=== PATIENT | female | born 1975 | race Caucasian/White ===

== ENCOUNTER 2017-01-06 18:29 | Inpatient (IN) | payer MEDICAID ==
[~2017-01-06] VITALS: Ht 167.6 cm; Wt 65.3 kg
[~2017-01-06 18:29] MED LIST: CLON2TAB PO; LAMO100T5 PO; TRAZ100T15 PO; elavil PO
[2017-01-06] MEDS ORDERED: ONDANSETRON 2MG/ML, 2ML ONE ×2 (19:15→20:27)
[2017-01-06] MEDS ORDERED: ONDANSETRON 2MG/ML, 2ML IVPush ONE ×2 (19:30→20:30)
[2017-01-06] MEDS ORDERED: SODIUM CHLORIDE 0.9% 1,000ML IVBOLUS ONE ×2 (19:30→20:00)
[2017-01-06] MEDS ORDERED: SODIUM CHLORIDE FLUSH 10ML SYR IVF ONE ×2 (19:30→20:00)
[2017-01-06 19:37] LABS: ASPARTATE AMINO TRANSFERASE 14 U/L (15-37); BLOOD UREA NITROGEN 12 mg/dL (7-18)
[2017-01-06] MEDS ORDERED: AMPH20TA2 PO (19:45)
[2017-01-06] MEDS ORDERED: MORPHINE SULFATE 4 MG/ML, 1ML ONE ×2 (19:52→20:34)
[2017-01-06] MEDS: MORPHINE SULFATE 4 MG/ML, 1ML IVPush PRN ×2 (20:00→20:35)
[2017-01-06] MEDS ORDERED: OMNIPAQUE 350 MG/ML, 100ML BOTTLE ONE (20:17)
[2017-01-06] MEDS ORDERED: PROCHLORPERAZINE 5 MG/ML, 2ML IVPush ONE (21:30)
[2017-01-06] MEDS ORDERED: PROCHLORPERAZINE 5 MG/ML, 2ML ONE (21:44)
[2017-01-06] MEDS ORDERED: ONDANSETRON 2MG/ML, 2ML IVPush PRN (22:30)
[2017-01-06 23:16] VITALS: BP 114/76
[2017-01-06] MEDS: morphine SULFATE 10 MG/ML, 1ML IVPush PRN (23:39)
[2017-01-07] MEDS: HEPARIN 5,000 UNITS/ML, 1ML SQ SCH ×3 (00:07→16:47)
[2017-01-07] MEDS: NICOTINE 21 MG/24 HR PATCH.TD24 TD SCH (00:07)
[2017-01-07] MEDS: SODIUM CHLORIDE 0.9% 1,000 ML IV SCH ×2 (00:07→09:33)
[2017-01-07] MEDS ORDERED: PNEUMOCOCCAL 23 VACCINE IM-VACC ONE (01:00)
[2017-01-07 03:00] VITALS: BP 104/66
[2017-01-07] MEDS: morphine SULFATE 10 MG/ML, 1ML IVPush PRN ×6 (03:10→20:13)
[2017-01-07 06:36] LABS: BLOOD UREA NITROGEN 10 mg/dL (7-18)
[2017-01-07 06:41] LABS: ASPARTATE AMINO TRANSFERASE 7 U/L (15-37)
[2017-01-07 07:31] VITALS: BP 113/73
[2017-01-07] MEDS: LORazepam 2 MG/ML, 1ML IVPush PRN ×2 (08:23→18:27)
[2017-01-07] MEDS ORDERED: POTASSIUM CHLORIDE 40 MEQ in SODIUM CHLORIDE 0.9% 500 ML IV ONE (10:00)
[2017-01-07 11:57] VITALS: BP 111/77
[2017-01-07 14:54] VITALS: BP 101/63
[2017-01-07 15:56] LABS: IS PT STATUS REG ER OR PRE ER? NO
[2017-01-07] MEDS: D5%-0.9% NACL 1,000 ML IV SCH ×2 (16:47→18:00)
[2017-01-07 19:40] VITALS: BP 128/89
[2017-01-07] MEDS ORDERED: TRAZODONE 100MG TABLET PO SCH (22:30)
[2017-01-08] MEDS: NICOTINE 21 MG/24 HR PATCH.TD24 TD SCH ×2 (00:01→21:31)
[2017-01-08] MEDS: HEPARIN 5,000 UNITS/ML, 1ML SQ SCH ×3 (00:01→16:38)
[2017-01-08 01:58] VITALS: BP 107/72
[2017-01-08] MEDS: D5%-0.9% NACL 1,000 ML IV SCH ×3 (02:04→21:32)
[2017-01-08] MEDS: morphine SULFATE 10 MG/ML, 1ML IVPush PRN ×5 (04:50→14:36)
[2017-01-08 06:11] LABS: BLOOD UREA NITROGEN 9 mg/dL (7-18)
[2017-01-08 07:38] VITALS: BP 113/77
[2017-01-08] MEDS: LAMOTRIGINE 100 MG TABLET PO SCH ×3 (08:00→21:30)
[2017-01-08 13:40] VITALS: BP 114/76
[2017-01-08] MEDS ORDERED: OXYcodone IR 5MG TABLET PO PRN (16:30)
[2017-01-08] MEDS ORDERED: OXYcodone/APAP 5/325MG TABLET PO PRN (17:30)
[2017-01-08] MEDS: OXYcodone/APAP 10/325MG TABLET PO PRN (19:42)
[2017-01-08 19:50] VITALS: BP 111/76
[2017-01-08] MEDS ORDERED: CLONAZEPAM 3 MG PO SCH (21:00)
[2017-01-08] MEDS ORDERED: TRAZODONE 100MG TABLET PO SCH (21:00)
[2017-01-09] MEDS: OXYcodone/APAP 10/325MG TABLET PO PRN ×3 (01:44→13:52)
[2017-01-09] MEDS: HEPARIN 5,000 UNITS/ML, 1ML SQ SCH ×3 (01:44→15:46)
[2017-01-09 01:45] VITALS: BP 106/72
[2017-01-09] MEDS: D5%-0.9% NACL 1,000 ML IV SCH ×2 (06:19→13:52)
[2017-01-09 07:15] VITALS: BP 118/79
[2017-01-09] MEDS: LAMOTRIGINE 100 MG TABLET PO SCH (07:51)
[2017-01-09] MEDS ORDERED: PNEUMOCOCCAL 23 VACCINE IM-VACC ONE ×2 (09:30→10:00)
[2017-01-09] MEDS: morphine SULFATE 10 MG/ML, 1ML IVPush PRN ×2 (11:40→15:46)
[2017-01-09 13:34] VITALS: BP 105/72
[2017-01-09] MEDS ORDERED: ONDA4TAB7 PO (15:50)
[2017-01-09] MEDS ORDERED: OXYC1TAB9 PO (15:50)
== END 2017-01-09 16:31 | disposition home or self-care (01) | DRG 392 ==
LOC: ED 21:29 → EDIP 21:40 → 3NE 22:30
DX: K52.9 Noninfective gastroenteritis and colitis, unspecified (principal); K56.60 Unspecified intestinal obstruction; K29.70 Gastritis, unspecified, without bleeding; F31.9 Bipolar disorder, unspecified; M79.7 Fibromyalgia; F12.10 Cannabis abuse, uncomplicated; Z83.3 Family history of diabetes mellitus; Z88.6 Allergy status to analgesic agent; Z88.8 Allergy status to other drugs, medicaments and biological substances; Z66 Do not resuscitate; N85.8 Other specified noninflammatory disorders of uterus; F98.8 Other specified behavioral and emotional disorders with onset usually occurring in childhood and adolescence; Z90.710 Acquired absence of both cervix and uterus; Z88.5 Allergy status to narcotic agent; E87.6 Hypokalemia; R00.0 Tachycardia, unspecified; F17.210 Nicotine dependence, cigarettes, uncomplicated; D75.89 Other specified diseases of blood and blood-forming organs
CPT/HCPCS: 36415; 74000; 74177; 80048; 80053; 81003; 83690; 83735; 84484; 84703; 85025; 90732; 93005; 96361; 96374; 96375; J1644; J2405; J3480; J7042; Q9967; J0780; J2060; J2270; J7030; J7040

== ENCOUNTER 2017-09-22 10:27 | Emergency (ER) | payer MEDICAID ==
[~2017-09-22] VITALS: Ht 167.6 cm; Wt 75.3 kg
[~2017-09-22 10:27] MED LIST changes: +AMPH20TA2 PO; +ONDA4TAB7 PO; +OXYC1TAB9 PO
[2017-09-22 10:37] VITALS: BP 114/76
[2017-09-22] MEDS ORDERED: HYDROcodone/APAP 7.5-325MG/15ML UDC PO ONE (11:00)
[2017-09-22] MEDS ORDERED: HYDROcodone/APAP 7.5-325MG/15ML UDC ONE (11:17)
[2017-09-22 11:25] LABS: RAPID INFLUENZA A Negative (Negative); RAPID INFLUENZA B Negative (Negative)
== END 2017-09-22 11:45 | disposition home or self-care (01) ==
LOC: ED 11:19
DX: B96.89 Other specified bacterial agents as the cause of diseases classified elsewhere (principal); J20.8 Acute bronchitis due to other specified organisms; F17.210 Nicotine dependence, cigarettes, uncomplicated; J00 Acute nasopharyngitis [common cold]; M79.7 Fibromyalgia
CPT/HCPCS: 71046; 87081; 87400; 87880; 99285

== ENCOUNTER 2017-09-29 09:51 | Emergency (ER) | payer MEDICAID ==
[~2017-09-29] VITALS: Ht 167.6 cm; Wt 73.5 kg
[2017-09-29] MEDS ORDERED: ALBUTEROL SULFATE 2.5 MG/3 ML NPPB ONE (10:30)
[2017-09-29] MEDS ORDERED: ALBUTEROL SULFATE 2.5 MG/3 ML ONE (10:42)
[2017-09-29] MEDS ORDERED: SODIUM CHLORIDE 0.9% 1,000 ML IV ONE (11:10)
[2017-09-29 11:24] VITALS: BP 121/93
[2017-09-29 11:25] LABS: BASOPHILS # (AUTO) 0.04 x10^3/uL (0-0.1); BASOPHILS % (AUTO) 0 % (0-1); EOSINOPHILS % (AUTO) 1 % (1-7); LYMPHOCYTES # (AUTO) 3.24 x10^3/uL (1-3.4); LYMPHOCYTES % (AUTO) 27 % (22-44); MD NO; MEAN CORPUSCULAR HEMOGLOBIN 30.5 pg (27.0-34.8); MEAN CORPUSCULAR VOLUME 89.7 fL (80-100); MEAN PLATELET VOLUME 6.3 fL (7.4-10.4); MONOCYTES # (AUTO) 0.49 x10^3/uL (0.2-0.8); MONOCYTES % (AUTO) 4 % (2-9); NEUTROPHILS # (AUTO) 8.32 x10^3/uL (1.8-6.8); NEUTROPHILS % (AUTO) 68 % (42-75); PLATELET COUNT 460 x10^3/uL (130-400); RED BLOOD COUNT 4.92 x10^6/uL (3.82-5.3); RED CELL DISTRIBUTION WIDTH 13.2 % (9.6-15.2)
[2017-09-29] MEDS ORDERED: SODIUM CHLORIDE FLUSH 10ML SYR IVF ONE (11:30)
[2017-09-29] MEDS ORDERED: SODIUM CHLORIDE 0.9% 1,000ML IVBOLUS ONE (11:30)
[2017-09-29 11:35] LABS: ALBUMIN 3.4 g/dL (3.4-5.0); ANION GAP 8 mmol/L (5-15); CALCIUM 8.4 mg/dL (8.5-10.1); CHLORIDE 106 mmol/L (98-107); CREATININE 0.73 mg/dL (0.55-1.02)
[2017-09-29] MEDS ORDERED: IBUPROFEN 200 MG TABLET ONE (12:27)
[2017-09-29] MEDS ORDERED: IBUPROFEN 200 MG TABLET PO ONE (12:30)
[2017-09-29] MEDS ORDERED: DEXAMETHASONE 4 MG TABLET ONE (12:36)
[2017-09-29] MEDS ORDERED: DEXAMETHASONE 4 MG TABLET PO ONE (13:00)
== END 2017-09-29 13:10 | disposition home or self-care (01) ==
LOC: ED 11:29
DX: J01.00 Acute maxillary sinusitis, unspecified (principal); J01.10 Acute frontal sinusitis, unspecified; J98.01 Acute bronchospasm
CPT/HCPCS: 36415; 71046; 80048; 82040; 85025; 94640; 96360; 99285; J7030; J7613

== ENCOUNTER → 2018-01-30 | Outpatient (CLI) | payer MEDICAID ==
[~2018-01-30] MED LIST changes: +CLON-365 PO; +DEXT10TA7 PO; +LAMO200T3 PO; +MIRT15TA4 PO; +OXYC-432 PO; -OXYC1TAB9 PO; +VARE1TAB21 PO
== END ==
LOC: STAR 13:16
PROVIDERS: ATTEND Surgery
DX: Z02.9 Encounter for administrative examinations, unspecified (principal)

== ENCOUNTER 2018-02-03 10:32 | Day surgery (SDC) | payer MEDICAID ==
[~2018-02-03] VITALS: Ht 167.6 cm; Wt 75.6 kg
[~2018-02-03 10:32] MED LIST changes: -OXYC-432 PO; +OXYC1TAB9 PO
[2018-02-03] MEDS ORDERED: LACTATED RINGERS 1,000 ML IV SCH ×2 (11:27→19:00)
[2018-02-03] MEDS ORDERED: GABAPENTIN 300 MG CAPSULE PO ONE (12:00)
[2018-02-03] MEDS ORDERED: FAMOTIDINE 20 MG TABLET PO ONE (12:00)
[2018-02-03] MEDS ORDERED: SCOPOLAMINE PATCH, 1.5MG PATCH.TD72 TD ONE (12:00)
[2018-02-03] MEDS ORDERED: OXYcodone IR 5MG TABLET PO ONE (12:00)
[2018-02-03] MEDS ORDERED: ONDANSETRON ODT 8 MG PO ONE (12:00)
[2018-02-03] MEDS ORDERED: ACETAMINOPHEN 500 MG TABLET PO ONE (12:00)
[2018-02-03] MEDS ORDERED: BUPIVACAINE/PF 0.25% ONE (13:59)
[2018-02-03] MEDS ORDERED: ISOSULFAN BLUE 10 MG/ML, 5ML IV ONE (13:59)
[2018-02-03] MEDS ORDERED: EPINEPHRINE 1 MG/ML, 1ML ONE (13:59)
[2018-02-03] MEDS ORDERED: MIDAZOLAM 1 MG/ML, 2ML ONE (14:09)
[2018-02-03] MEDS ORDERED: FENTANYL PF 100 MCG/2ML ONE ×3 (14:09→17:07)
[2018-02-03] MEDS ORDERED: DEXAMETHASONE 4 MG/ML, 1ML ONE (14:43)
[2018-02-03] MEDS ORDERED: PROPOFOL 10 MG/ML, 20ML ONE (14:43)
[2018-02-03] MEDS ORDERED: CEFAZOLIN 1,000 MG ONE (14:43)
[2018-02-03] MEDS ORDERED: ONDANSETRON 2MG/ML, 2ML ONE (14:43)
[2018-02-03] MEDS ORDERED: OXYcodone 5 MG/5 ML ORAL.SOL UDC ONE ×2 (17:08→18:56)
[2018-02-03] MEDS ORDERED: ACETAMINOPHEN 650 MG/20.3 ML UDC ONE (17:08)
[2018-02-03] MEDS: FENTANYL PF 100 MCG/2ML IV PRN ×2 (17:15→17:20)
[2018-02-03] MEDS ORDERED: MEPERIDINE/PF 25MG/0.5ML ONE (17:24)
[2018-02-03] MEDS ORDERED: PROMETHAZINE 25 MG/ML, 1ML IV PRN (17:30)
[2018-02-03] MEDS ORDERED: ALBUTEROL SULFATE 2.5 MG/3 ML NPPB PRN (17:30)
[2018-02-03] MEDS ORDERED: HYDROcodone/APAP 7.5-325MG/15ML UDC PO PRN (17:30)
[2018-02-03] MEDS ORDERED: DIAZEPAM 5 MG/ML, 2ML IVPush PRN (17:30)
[2018-02-03] MEDS ORDERED: EPHEDRINE 50 MG/ML, 1ML IVPush PRN (17:30)
[2018-02-03] MEDS ORDERED: LABETALOL 5MG/ML, 20ML IV PRN (17:30)
[2018-02-03] MEDS ORDERED: OXYcodone 5 MG/5 ML ORAL.SOL UDC PO PRN ×3 (17:30→19:00)
[2018-02-03] MEDS ORDERED: hydrALAzine 20 MG/ML, 1ML IV PRN (17:30)
[2018-02-03] MEDS ORDERED: MEPERIDINE/PF 25MG/0.5ML IVPush PRN (17:30)
[2018-02-03] MEDS ORDERED: ONDANSETRON ODT 8 MG PO PRN (17:30)
[2018-02-03] MEDS ORDERED: HYDROmorphone 1 MG/ML, 1ML IV PRN (17:30)
[2018-02-03] MEDS ORDERED: MIDAZOLAM 1 MG/ML, 2ML IV PRN (17:30)
[2018-02-03] MEDS ORDERED: ONDANSETRON 2MG/ML, 2ML IVPush PRN (19:00)
[2018-02-03] MEDS ORDERED: MORPHINE SULFATE 4 MG/ML, 1ML IVPush PRN (19:00)
[2018-02-03 19:41] VITALS: BP 111/75
[2018-02-04] MEDS ORDERED: LACTATED RINGERS 1,000 ML IV SCH (19:00)
== END 2018-02-03 20:30 | disposition home or self-care (01) ==
LOC: OUT 10:32 → 4NOR 18:10 → OUT 20:30
PROVIDERS: ATTEND Surgery
DX: C50.811 Malignant neoplasm of overlapping sites of right female breast (principal); F41.9 Anxiety disorder, unspecified; F31.9 Bipolar disorder, unspecified; Z88.8 Allergy status to other drugs, medicaments and biological substances
CPT/HCPCS: 19303; 38525; 38792; 88305; 88307; A9541; C1729; J0171; J0690; J1100; J2175; J2250; J2405; J2704; J3010; J3490; J7120; Q0162

== ENCOUNTER → 2018-02-19 | Outpatient (CLI) | payer MEDICAID ==
[~2018-02-19] MED LIST changes: +OXYC-432 PO; -OXYC1TAB9 PO
== END | disposition home or self-care (01) ==
LOC: ROC 12:37
PROVIDERS: ATTEND Radiology Radiation Oncology
DX: Z08 Encounter for follow-up examination after completed treatment for malignant neoplasm (principal); C50.411 Malignant neoplasm of upper-outer quadrant of right female breast
CPT/HCPCS: 99214; G0463

== ENCOUNTER → 2018-03-25 | Outpatient (CLI) | payer MEDICAID ==
[~2018-03-25] MED LIST changes: -CLON-365 PO; +CLON1TAB4 PO; +TRAZ-137 PO; -TRAZ100T15 PO
== END | disposition home or self-care (01) ==
LOC: CFH 14:42
PROVIDERS: ATTEND Internal Medicine Hematology & Oncology
DX: I51.7 Cardiomegaly (principal); C50.411 Malignant neoplasm of upper-outer quadrant of right female breast; Z87.891 Personal history of nicotine dependence; Z90.11 Acquired absence of right breast and nipple
CPT/HCPCS: 93306

== ENCOUNTER 2018-03-26 07:09 | Day surgery (SDC) | payer MEDICAID ==
[2018-03-25 11:51] VITALS: BP 121/84
[~2018-03-26] VITALS: Ht 167.6 cm; Wt 79.9 kg
[2018-03-26] MEDS ORDERED: ACETAMINOPHEN 500 MG TABLET PO ONE (07:30)
[2018-03-26] MEDS ORDERED: GABAPENTIN 300 MG CAPSULE PO ONE (07:30)
[2018-03-26] MEDS ORDERED: SCOPOLAMINE PATCH, 1.5MG PATCH.TD72 TD ONE (07:30)
[2018-03-26] MEDS ORDERED: ONDANSETRON 2MG/ML, 2ML IVPush ONE (07:30)
[2018-03-26] MEDS ORDERED: LACTATED RINGERS 1,000 ML IV SCH (07:34)
[2018-03-26] MEDS ORDERED: FENTANYL PF 100 MCG/2ML ONE ×2 (08:02→09:09)
[2018-03-26] MEDS ORDERED: MIDAZOLAM 1 MG/ML, 2ML ONE (08:03)
[2018-03-26] MEDS ORDERED: HEPARIN 1,000 UNITS/ML, 10ML IV ONE (08:42)
[2018-03-26] MEDS ORDERED: BUPIVACAINE/PF-EPI 0.5% 1:200K INFIL ONE (08:42)
[2018-03-26] MEDS ORDERED: OXYcodone 5 MG/5 ML ORAL.SOL UDC PO PRN (09:00)
[2018-03-26] MEDS ORDERED: LORazepam 2 MG/ML, 1ML IVPush PRN (09:00)
[2018-03-26] MEDS ORDERED: MORPHINE SULFATE 4 MG/ML, 1ML IVPush PRN (09:00)
[2018-03-26] MEDS ORDERED: PROMETHAZINE 25 MG/ML, 1ML IV PRN (09:00)
[2018-03-26] MEDS ORDERED: MIDAZOLAM 1 MG/ML, 2ML IV PRN (09:00)
[2018-03-26] MEDS ORDERED: FENTANYL PF 100 MCG/2ML IV PRN (09:00)
[2018-03-26] MEDS ORDERED: ONDANSETRON ODT 8 MG PO PRN (09:00)
[2018-03-26] MEDS ORDERED: ONDANSETRON 2MG/ML, 2ML IV PRN (09:00)
[2018-03-26] MEDS ORDERED: OXYcodone 5 MG/5 ML ORAL.SOL UDC ONE (09:09)
[2018-03-26] MEDS ORDERED: PROPOFOL 10 MG/ML, 20ML ONE (15:40)
[2018-03-26] MEDS ORDERED: CEFAZOLIN 1,000 MG ONE (15:40)
[2018-03-26] MEDS ORDERED: DEXAMETHASONE 4 MG/ML, 1ML ONE (15:40)
[2018-03-26] MEDS ORDERED: ONDANSETRON 2MG/ML, 2ML ONE (15:40)
== END 2018-03-26 10:40 ==
LOC: OUT 07:09
PROVIDERS: ATTEND Surgery
DX: Z45.2 Encounter for adjustment and management of vascular access device (principal); C50.911 Malignant neoplasm of unspecified site of right female breast; F41.9 Anxiety disorder, unspecified; F31.9 Bipolar disorder, unspecified; Z98.890 Other specified postprocedural states; F17.210 Nicotine dependence, cigarettes, uncomplicated; Z72.89 Other problems related to lifestyle; Z88.5 Allergy status to narcotic agent; Z88.8 Allergy status to other drugs, medicaments and biological substances; Z79.899 Other long term (current) drug therapy
CPT/HCPCS: 36561; 71045; 77001; C1769; C1788; J0690; J1100; J1644; J2250; J2405; J2704; J3010

== ENCOUNTER 2018-04-27 19:21 | Emergency (ER) | payer MEDICAID ==
[~2018-04-27] VITALS: Ht 167.6 cm; Wt 81.6 kg
[2018-04-27 19:27] VITALS: BP 126/87
[2018-04-27] MEDS ORDERED: KETOROLAC 30 MG/1 ML ONE (19:57)
[2018-04-27] MEDS ORDERED: ONDANSETRON ODT 4 MG ONE (19:57)
[2018-04-27] MEDS ORDERED: DIPHENHYDRAMINE 25 MG CAPSULE ONE (19:58)
[2018-04-27] MEDS ORDERED: ONDANSETRON ODT 4 MG PO ONE (20:00)
[2018-04-27] MEDS ORDERED: KETOROLAC 30 MG/1 ML IM ONE (20:00)
[2018-04-27] MEDS ORDERED: DIPHENHYDRAMINE 25 MG CAPSULE PO ONE (20:00)
[2018-04-27 20:23] LABS: MEAN CORPUSCULAR HEMOGLOBIN 30.7 pg (27.0-34.8); MEAN CORPUSCULAR HGB CONC 34.3 g/dL (32.4-35.8); MEAN CORPUSCULAR VOLUME 89.6 fL (80-100); MEAN PLATELET VOLUME 6.3 fL (7.4-10.4); PLATELET COUNT 311 x10^3/uL (130-400); RED BLOOD COUNT 4.27 x10^6/uL (3.82-5.3); RED CELL DISTRIBUTION WIDTH 14.5 % (9.6-15.2)
[2018-04-27 20:25] LABS: MD YES
[2018-04-27 20:34] LABS: ALBUMIN 4.2 g/dL (3.4-5.0); ANION GAP 4 mmol/L (5-15); CALCIUM 9.6 mg/dL (8.5-10.1); CHLORIDE 105 mmol/L (98-107); CREATININE 0.94 mg/dL (0.55-1.02)
[2018-04-27 20:45] LABS: BAND#(MANUAL) 0.41 x10^3/uL; BANDS%(MANUAL) 3 % (0-7); LYMPH#(MANUAL) 2.35 x10^3/uL (1-3.4); LYMPHS% (MANUAL) 17 % (22-44); METAMYELOCYTES# (MANUAL) 0.14 x10^3/uL (0-0); METAMYELOCYTES% (MANUAL) 1 % (0-1); MONOS#(MANUAL) 0.97 x10^3/uL (0.3-2.7); MONOS% (MANUAL) 7 % (2-9); REACTIVE LYMPHS # (MANUAL) 0.14 x10^3/uL (0-0); REACTIVE LYMPHS % (MANUAL) 1 % (0-0); SEGS% (MANUAL) 71 % (42-75)
[2018-04-27 20:46] LABS: <PLATELET ESTIMATE> ADEQUATE; <PLT MORPHOLOGY> NORMAL PLT MORPH; <RBC MORPHOLOGY> NORMAL; TOXIC GRAN 1+
== END 2018-04-27 22:45 ==
LOC: ED 21:07
DX: T63.461A Toxic effect of venom of wasps, accidental (unintentional), initial encounter (principal); L23.89 Allergic contact dermatitis due to other agents; R11.0 Nausea; R10.9 Unspecified abdominal pain; Y92.89 Other specified places as the place of occurrence of the external cause; F31.9 Bipolar disorder, unspecified; Z90.710 Acquired absence of both cervix and uterus; M79.7 Fibromyalgia; Z85.3 Personal history of malignant neoplasm of breast; F98.8 Other specified behavioral and emotional disorders with onset usually occurring in childhood and adolescence; Z90.10 Acquired absence of unspecified breast and nipple
CPT/HCPCS: 36415; 80048; 82040; 85025; 96372; 99284; J1885; Q0162; Q0163

== ENCOUNTER 2018-05-05 10:34 | Emergency (ER) | payer MEDICAID ==
[~2018-05-05] VITALS: Ht 167.6 cm; Wt 78.0 kg
[2018-05-05] MEDS ORDERED: LIDOCAINE 2%,20 ML JEL.PF.APP MM ONE (11:42)
[2018-05-05] MEDS ORDERED: SODIUM CHLORIDE 0.9% 1,000ML IVBOLUS ONE (12:00)
[2018-05-05] MEDS ORDERED: MORPHINE SULFATE 4 MG/ML, 1ML IVPush PRN (12:00)
[2018-05-05] MEDS ORDERED: MORPHINE SULFATE 4 MG/ML, 1ML ONE ×2 (12:03→13:24)
[2018-05-05 12:15] LABS: MEAN CORPUSCULAR HGB CONC 34.1 g/dL (32.4-35.8); MEAN CORPUSCULAR VOLUME 87.9 fL (80-100); MEAN PLATELET VOLUME 6.5 fL (7.4-10.4); PLATELET COUNT 268 x10^3/uL (130-400); RED BLOOD COUNT 3.78 x10^6/uL (3.82-5.3); RED CELL DISTRIBUTION WIDTH 14.5 % (9.6-15.2)
[2018-05-05] MEDS ORDERED: ONDANSETRON ODT 4 MG ONE (12:20)
[2018-05-05 12:25] LABS: PROTHROMBIN TIME 10.3 Seconds (9.6-11.5)
[2018-05-05 12:27] LABS: ALBUMIN 3.7 g/dL (3.4-5.0); ANION GAP 8 mmol/L (5-15); CALCIUM 8.8 mg/dL (8.5-10.1); CHLORIDE 106 mmol/L (98-107)
[2018-05-05] MEDS ORDERED: ONDANSETRON ODT 4 MG PO PRN (12:30)
[2018-05-05 12:33] LABS: ALANINE AMINOTRANSFERASE 12 U/L (12-78); ALKALINE PHOSPHATASE 87 U/L (45-117); BILIRUBIN,TOTAL 0.3 mg/dL (0.2-1.0); CREATININE 0.67 mg/dL (0.55-1.02); TOTAL PROTEIN 6.9 g/dL (6.4-8.2)
[2018-05-05 12:51] LABS: MD YES
[2018-05-05 12:55] LABS: <PLATELET ESTIMATE> ADEQUATE; <PLT MORPHOLOGY> NORMAL PLT MORPH; <RBC MORPHOLOGY> NORMAL; LYMPH#(MANUAL) 0.83 x10^3/uL (1-3.4); LYMPHS% (MANUAL) 16 % (22-44); MONOS% (MANUAL) 2 % (2-9); SEG#(MANUAL) 4.26 x10^3/uL (1.8-6.8); SEGS% (MANUAL) 82 % (42-75)
[2018-05-05 13:54] LABS: CULTURE INDICATED? NO; MICROSCOPIC NOT IND
[2018-05-05 14:48] VITALS: BP 106/78
== END 2018-05-05 14:55 | disposition home or self-care (01) ==
LOC: ED 14:50
DX: R11.2 Nausea with vomiting, unspecified (principal); M13.0 Polyarthritis, unspecified; F31.9 Bipolar disorder, unspecified; R06.00 Dyspnea, unspecified; R42 Dizziness and giddiness; F98.8 Other specified behavioral and emotional disorders with onset usually occurring in childhood and adolescence; Z90.10 Acquired absence of unspecified breast and nipple; Z85.3 Personal history of malignant neoplasm of breast; R79.1 Abnormal coagulation profile
CPT/HCPCS: 36415; 80053; 81003; 83690; 84703; 85025; 85610; 85730; 87040; 93005; 96361; 96374; 99285; J7030; Q0162

== ENCOUNTER 2018-05-19 15:46 | Emergency (ER) | payer MEDICAID ==
[~2018-05-19] VITALS: Ht 167.6 cm; Wt 82.1 kg
[2018-05-19] MEDS ORDERED: SODIUM CHLORIDE 0.9% 1,000ML IVBOLUS ONE (16:00)
[2018-05-19 16:30] LABS: MD YES; MEAN CORPUSCULAR HEMOGLOBIN 30.4 pg (27.0-34.8); MEAN CORPUSCULAR HGB CONC 34.3 g/dL (32.4-35.8); MEAN CORPUSCULAR VOLUME 88.6 fL (80-100); PLATELET COUNT 257 x10^3/uL (130-400); RED BLOOD COUNT 3.63 x10^6/uL (3.82-5.3); RED CELL DISTRIBUTION WIDTH 15.6 % (9.6-15.2)
[2018-05-19 16:35] LABS: ALBUMIN 3.8 g/dL (3.4-5.0); ANION GAP 11 mmol/L (5-15); CALCIUM 9.1 mg/dL (8.5-10.1); CHLORIDE 105 mmol/L (98-107)
[2018-05-19 16:38] LABS: ALANINE AMINOTRANSFERASE 18 U/L (12-78); ALKALINE PHOSPHATASE 89 U/L (45-117); BILIRUBIN,TOTAL 0.3 mg/dL (0.2-1.0); CREATININE 0.67 mg/dL (0.55-1.02); TOTAL PROTEIN 7.3 g/dL (6.4-8.2)
[2018-05-19 17:11] LABS: BASOS#(MANUAL) 0.14 x10^3/uL (0-0.1); BASOS% (MANUAL) 3 % (0-1); METAMYELOCYTES# (MANUAL) 0.14 x10^3/uL (0-0); METAMYELOCYTES% (MANUAL) 3 % (0-1); MYELOCYTES# (MANUAL) 0.18 x10^3/uL (0-0); MYELOCYTES% (MANUAL) 4 % (0-0); REACTIVE LYMPHS # (MANUAL) 0.05 x10^3/uL (0-0); REACTIVE LYMPHS % (MANUAL) 1 % (0-0)
[2018-05-19 17:13] LABS: BAND#(MANUAL) 0.18 x10^3/uL; BANDS%(MANUAL) 4 % (0-7); EOS#(MANUAL) 0.05 x10^3/uL (0.0-0.4); EOS% (MANUAL) 1 % (1-7); LYMPH#(MANUAL) 0.72 x10^3/uL (1-3.4); LYMPHS% (MANUAL) 16 % (22-44); MONOS#(MANUAL) 0.81 x10^3/uL (0.3-2.7); MONOS% (MANUAL) 18 % (2-9); NRBC % (MANUAL) 2 % (0-1); SEG#(MANUAL) 2.25 x10^3/uL (1.8-6.8); SEGS% (MANUAL) 50 % (42-75)
[2018-05-19 17:15] LABS: ANISOCYTOSIS 1+; OVALOCYTES 1+; POLYCHROMASIA 1+
[2018-05-19 17:16] LABS: <PLATELET ESTIMATE> ADEQUATE; <PLT MORPHOLOGY> NORMAL PLT MORPH; TOXIC GRAN 1+
[2018-05-19 18:04] VITALS: BP 128/82
== END 2018-05-19 19:02 | disposition home or self-care (01) ==
LOC: ED 18:56
DX: H92.01 Otalgia, right ear (principal); F31.9 Bipolar disorder, unspecified; C50.919 Malignant neoplasm of unspecified site of unspecified female breast
CPT/HCPCS: 36415; 71045; 80053; 85025; 87040; 99285; J7030

== ENCOUNTER → 2018-06-11 | Outpatient (CLI) | payer MEDICAID ==
[~2018-06-11] MED LIST changes: +CLON1TAB11 PO; -CLON1TAB4 PO
== END | disposition home or self-care (01) ==
LOC: ROC 07:08
PROVIDERS: ATTEND Radiology Radiation Oncology
DX: C50.911 Malignant neoplasm of unspecified site of right female breast (principal)
CPT/HCPCS: 99212; G0463

== ENCOUNTER → 2018-07-07 | Outpatient (CLI) | payer MEDICAID | END | disposition home or self-care (01) | LOC: CFH 16:03 | PROVIDERS: ATTEND Internal Medicine Cardiovascular Disease | DX: I34.0 Nonrheumatic mitral (valve) insufficiency (principal); Z72.0 Tobacco use; Z85.3 Personal history of malignant neoplasm of breast; Z90.11 Acquired absence of right breast and nipple | CPT/HCPCS: 93306 ==

== ENCOUNTER → 2018-08-31 | Outpatient (CLI) | payer MEDICAID | END | disposition home or self-care (01) | LOC: ROC 08:58 | PROVIDERS: ATTEND Radiology Radiation Oncology | DX: C50.411 Malignant neoplasm of upper-outer quadrant of right female breast (principal) ==

== ENCOUNTER 2018-11-13 07:28 | Outpatient (CLI) | payer MEDICAID | END 2018-11-13 23:59 | disposition home or self-care (01) | LOC: ROC 07:28 → EDSTATUS 08-24 17:26 | PROVIDERS: ATTEND Radiology Radiation Oncology | DX: Z08 Encounter for follow-up examination after completed treatment for malignant neoplasm (principal); C50.411 Malignant neoplasm of upper-outer quadrant of right female breast | CPT/HCPCS: 99213; G0463 ==

== ENCOUNTER 2018-12-16 07:50 | Outpatient (CLI) | payer MEDICAID | END 2018-12-16 23:59 | disposition home or self-care (01) | LOC: CFH 07:50 | PROVIDERS: ATTEND Radiology Radiation Oncology | DX: Z12.31 Encounter for screening mammogram for malignant neoplasm of breast (principal); Z90.11 Acquired absence of right breast and nipple; Z85.3 Personal history of malignant neoplasm of breast | CPT/HCPCS: 77063; 77067 ==

== ENCOUNTER → 2018-12-31 | Outpatient (CLI) | payer MEDICAID | END | disposition home or self-care (01) | LOC: ROC 09:08 | PROVIDERS: ATTEND Radiology Radiation Oncology | DX: Z08 Encounter for follow-up examination after completed treatment for malignant neoplasm (principal); Z85.3 Personal history of malignant neoplasm of breast; Z79.899 Other long term (current) drug therapy | CPT/HCPCS: 99212; G0463 ==

== ENCOUNTER → 2019-02-18 | Outpatient (CLI) | payer MEDICAID | END | disposition home or self-care (01) | LOC: PETCFH 12:02 | PROVIDERS: ATTEND Internal Medicine Hematology & Oncology | DX: C50.411 Malignant neoplasm of upper-outer quadrant of right female breast (principal) | CPT/HCPCS: 78306; A9503 ==

== ENCOUNTER 2019-02-24 09:58 | Emergency (ER) | payer MEDICAID ==
[~2019-02-24] VITALS: Ht 170.2 cm; Wt 72.3 kg
[2019-02-24] MEDS ORDERED: HYDROcodone/APAP 5/325 TABLET PO ONE ×2 (11:30→13:30)
[2019-02-24] MEDS ORDERED: KETOROLAC 30 MG/1 ML IVPush ONE (11:30)
[2019-02-24] MEDS ORDERED: SODIUM CHLORIDE FLUSH 10ML SYR IVF ONE (11:30)
[2019-02-24] MEDS ORDERED: HYDROcodone/APAP 5/325 TABLET ONE ×2 (11:50→13:26)
[2019-02-24] MEDS ORDERED: KETOROLAC 30 MG/1 ML ONE (11:50)
[2019-02-24 11:57] LABS: BASOPHILS # (AUTO) 0.02 x10^3/uL (0-0.1); BASOPHILS % (AUTO) 0 % (0-1); EOSINOPHILS # (AUTO) 0.03 x10^3/uL (0-0.4); EOSINOPHILS % (AUTO) 0 % (1-7); LYMPHOCYTES % (AUTO) 15 % (22-44); MD NO; MEAN CORPUSCULAR HEMOGLOBIN 30.9 pg (27.0-34.8); MEAN CORPUSCULAR HGB CONC 33.1 g/dL (32.4-35.8); MEAN CORPUSCULAR VOLUME 93.6 fL (80-100); MEAN PLATELET VOLUME 6.6 fL (7.4-10.4); MONOCYTES # (AUTO) 0.27 x10^3/uL (0.2-0.8); MONOCYTES % (AUTO) 4 % (2-9); NEUTROPHILS # (AUTO) 6.07 x10^3/uL (1.8-6.8); NEUTROPHILS % (AUTO) 81 % (42-75); PLATELET COUNT 387 x10^3/uL (130-400); RED BLOOD COUNT 4.89 x10^6/uL (3.82-5.3); RED CELL DISTRIBUTION WIDTH 15.4 % (9.6-15.2)
[2019-02-24 12:08] LABS: CHLORIDE 105 mmol/L (98-107)
--- NOTE | 2019-02-24 12:08 | NUR ---
IV ESTABLISHED AND PT MEDICATED PER MAR, PT AWAITING CT SCAN. URINE SENT TO LAB
[2019-02-24 12:13] LABS: ALANINE AMINOTRANSFERASE 23 U/L (12-78); ALBUMIN 4.6 g/dL (3.4-5.0); ALKALINE PHOSPHATASE 140 U/L (45-117); ANION GAP 9 mmol/L (5-15); BILIRUBIN,TOTAL 0.4 mg/dL (0.2-1.0); CALCIUM 9.8 mg/dL (8.5-10.1); CREATININE 0.93 mg/dL (0.55-1.02); TOTAL PROTEIN 8.3 g/dL (6.4-8.2)
[2019-02-24 12:26] LABS: MICROSCOPIC INDICATED
--- NOTE | 2019-02-24 12:30 | NUR ---
PT RETURNED FROM CT
[2019-02-24 13:03] LABS: CULTURE INDICATED? YES
[2019-02-24 13:59] VITALS: BP 110/60
== END 2019-02-24 14:05 | disposition home or self-care (01) ==
LOC: ED 11:30
DX: G89.29 Other chronic pain (principal); M48.54XA Collapsed vertebra, not elsewhere classified, thoracic region, initial encounter for fracture; M51.34 Other intervertebral disc degeneration, thoracic region; M51.36 Other intervertebral disc degeneration, lumbar region; F31.9 Bipolar disorder, unspecified; F17.200 Nicotine dependence, unspecified, uncomplicated; Z90.10 Acquired absence of unspecified breast and nipple; Z90.710 Acquired absence of both cervix and uterus; Z86.59 Personal history of other mental and behavioral disorders
CPT/HCPCS: 36415; 72128; 72131; 80053; 81001; 85025; 87086; 96374; 99284; J1885

== ENCOUNTER 2019-03-12 21:02 | Emergency (ER) | payer MEDICAID ==
[~2019-03-12] VITALS: Ht 170.2 cm; Wt 70.0 kg
--- NOTE | 2019-03-12 22:21 | NUR ---
PT TO RM FROM LOBBY. CARE ASSUMED. PROVIDER AT BEDSIDE.
[2019-03-12] MEDS ORDERED: ONDANSETRON 2MG/ML, 2ML IVPush ONE (22:30)
[2019-03-12] MEDS ORDERED: HYDROmorphone 2 MG/ML, 1ML ONE (22:34)
[2019-03-12] MEDS ORDERED: ONDANSETRON 2MG/ML, 2ML ONE (22:34)
[2019-03-12] MEDS: HYDROmorphone 1 MG/ML, 1ML INJ IVPush PRN (22:47)
[2019-03-12 23:07] LABS: BASOPHILS # (AUTO) 0.11 x10^3/uL (0-0.1); BASOPHILS % (AUTO) 1 % (0-1); EOSINOPHILS # (AUTO) 0.05 x10^3/uL (0-0.4); EOSINOPHILS % (AUTO) 1 % (1-7); LYMPHOCYTES # (AUTO) 1.52 x10^3/uL (1-3.4); LYMPHOCYTES % (AUTO) 20 % (22-44); MD NO; MEAN CORPUSCULAR HEMOGLOBIN 30.6 pg (27.0-34.8); MEAN CORPUSCULAR HGB CONC 32.9 g/dL (32.4-35.8); MEAN CORPUSCULAR VOLUME 93.2 fL (80-100); MEAN PLATELET VOLUME 7.2 fL (7.4-10.4); MONOCYTES # (AUTO) 0.42 x10^3/uL (0.2-0.8); MONOCYTES % (AUTO) 6 % (2-9); NEUTROPHILS # (AUTO) 5.57 x10^3/uL (1.8-6.8); NEUTROPHILS % (AUTO) 73 % (42-75); PLATELET COUNT 348 x10^3/uL (130-400); RED BLOOD COUNT 4.41 x10^6/uL (3.82-5.3); RED CELL DISTRIBUTION WIDTH 14.5 % (9.6-15.2)
[2019-03-12 23:15] LABS: ALBUMIN 4.2 g/dL (3.4-5.0); ANION GAP 9 mmol/L (5-15); CALCIUM 9.8 mg/dL (8.5-10.1); CHLORIDE 104 mmol/L (98-107); CREATININE 1.09 mg/dL (0.55-1.02)
--- NOTE | 2019-03-12 23:34 | NUR ---
PT TO RADIOLOGY VIA [facility]
--- NOTE | 2019-03-13 00:15 | NUR ---
PT BACK FROM CT AND REQUESTING MORE PAIN MEDS. PT TO BE MEDICATED. AWARE OF UA--UNABLE TO OBTAIN AT THIS TIME S/T INCREASED BACK PAIN.
[2019-03-13] MEDS ORDERED: HYDROmorphone 2 MG/ML, 1ML ONE (00:19)
[2019-03-13] MEDS: HYDROmorphone 1 MG/ML, 1ML INJ IVPush PRN (00:21)
[2019-03-13] MEDS ORDERED: LIDODERM 5% PATCH TD ONE ×2 (01:00→01:03)
[2019-03-13 01:24] VITALS: BP 109/63
== END 2019-03-13 01:26 | disposition home or self-care (01) ==
LOC: ED 23:18
DX: S39.012A Strain of muscle, fascia and tendon of lower back, initial encounter (principal); S29.012A Strain of muscle and tendon of back wall of thorax, initial encounter; F17.200 Nicotine dependence, unspecified, uncomplicated; Z90.710 Acquired absence of both cervix and uterus; Z85.3 Personal history of malignant neoplasm of breast; W19.XXXA Unspecified fall, initial encounter; Y93.89 Activity, other specified; Y92.89 Other specified places as the place of occurrence of the external cause; Y99.8 Other external cause status
CPT/HCPCS: 36415; 72128; 72131; 80048; 82040; 85025; 96374; 96375; 96376; 99284; J1170; J2405

== ENCOUNTER 2019-03-26 12:58 | Outpatient (CLI) | payer MEDICAID ==
[~2019-03-26 12:58] MED LIST changes: +MIRT-34 PO; -MIRT15TA4 PO
== END 2019-03-26 23:59 | disposition home or self-care (01) ==
LOC: CFH 12:58
PROVIDERS: ATTEND Family Medicine
DX: N64.4 Mastodynia (principal); Z85.3 Personal history of malignant neoplasm of breast; Z17.0 Estrogen receptor positive status [ER+]; Z90.11 Acquired absence of right breast and nipple
CPT/HCPCS: 76642

== ENCOUNTER 2019-09-23 08:32 | Outpatient (CLI) | payer MEDICAID ==
[~2019-09-23 08:32] MED LIST changes: -TRAZ-137 PO; +TRAZ-175 PO
== END 2019-09-23 23:59 | disposition home or self-care (01) ==
LOC: ROC 08:32
PROVIDERS: ATTEND Radiology Radiation Oncology
DX: C50.411 Malignant neoplasm of upper-outer quadrant of right female breast (principal)
CPT/HCPCS: 99213; G0463

== ENCOUNTER 2019-10-17 13:59 | Emergency (ER) | payer MEDICAID ==
[~2019-10-17] VITALS: Ht 170.2 cm; Wt 75.4 kg
[2019-10-17] MEDS ORDERED: OXYcodone/APAP 10/325MG TABLET PO ONE (14:30)
--- NOTE | 2019-10-17 14:32 | NUR ---
tawnya prado in room for evclaire. pt c/o upper to low back pain w/ numbn/tingling down both legs, sharp pain in buttocks. mri of t spine at [facility], neg last wk. plan for cts. able to walk. sts has been losing balance but catches herself. vss. call simon in reach. control of bowels/bladder. as
[2019-10-17] MEDS ORDERED: OXYcodone/APAP 10/325MG TABLET ONE (14:47)
--- NOTE | 2019-10-17 14:49 | NUR ---
ua sent meds per mar labs pending.as
[2019-10-17 14:50] LABS: BASOPHILS # (AUTO) 0.05 x10^3/uL (0-0.1); BASOPHILS % (AUTO) 1 % (0-1); EOSINOPHILS # (AUTO) 0.12 x10^3/uL (0-0.4); EOSINOPHILS % (AUTO) 2 % (1-7); LYMPHOCYTES # (AUTO) 1.23 x10^3/uL (1-3.4); LYMPHOCYTES % (AUTO) 16 % (22-44); MD NO; MEAN CORPUSCULAR HEMOGLOBIN 29.8 pg (27.0-34.8); MEAN CORPUSCULAR HGB CONC 33.3 g/dL (32.4-35.8); MEAN CORPUSCULAR VOLUME 89.5 fL (80-100); MEAN PLATELET VOLUME 6.6 fL (7.4-10.4); MONOCYTES # (AUTO) 0.33 x10^3/uL (0.2-0.8); MONOCYTES % (AUTO) 4 % (2-9); NEUTROPHILS # (AUTO) 5.84 x10^3/uL (1.8-6.8); NEUTROPHILS % (AUTO) 77 % (42-75); PLATELET COUNT 350 x10^3/uL (130-400); RED CELL DISTRIBUTION WIDTH 13.6 % (9.6-15.2)
[2019-10-17 15:02] LABS: MICROSCOPIC AUTO
[2019-10-17 15:02] LABS: ANION GAP 6 mmol/L (5-15); C-REACTIVE PROTEIN, QUANT 0.06 mg/dL (0.02-0.49); CALCIUM 9.2 mg/dL (8.5-10.1); CHLORIDE 108 mmol/L (98-107); CREATININE 0.93 mg/dL (0.55-1.02)
[2019-10-17 15:05] LABS: CULTURE INDICATED? YES
[2019-10-17] MEDS ORDERED: GADOTERATE 7.5 MMOL/15 ML SYR ONE (17:01)
[2019-10-17] MEDS ORDERED: KETOROLAC 30 MG/1 ML ONE (17:21)
[2019-10-17] MEDS ORDERED: KETOROLAC 30 MG/1 ML IVPush ONE (17:30)
--- NOTE | 2019-10-17 17:31 | NUR ---
toradol per mar for incr pain. mris pending. bp low see vs. pt sts she has not eaten/drank today. pt drinking water/eating snack. fall precs. wctm bp. as
[2019-10-17 18:06] VITALS: BP 90/52
--- NOTE | 2019-10-17 18:06 | NUR ---
sts pain improved. bp improved. drinking water. recheck. as
--- NOTE | 2019-10-17 18:48 | NUR ---
REPORT TO FALLON CLARKE.
== END 2019-10-17 19:03 | disposition home or self-care (01) ==
LOC: ED 16:22
DX: G89.29 Other chronic pain (principal); M54.5 Low back pain; M54.2 Cervicalgia; M54.6 Pain in thoracic spine; Z90.710 Acquired absence of both cervix and uterus; Z85.3 Personal history of malignant neoplasm of breast
CPT/HCPCS: 36415; 72156; 72158; 80048; 81001; 85025; 85651; 86140; 87086; 96374; 99285; A9575; J1885

== ENCOUNTER 2020-01-19 07:27 | Outpatient (CLI) | payer MEDICAID | END 2020-01-19 23:59 | disposition home or self-care (01) | LOC: CFH 07:27 | PROVIDERS: ATTEND Internal Medicine Hematology & Oncology | DX: Z12.31 Encounter for screening mammogram for malignant neoplasm of breast (principal); Z85.3 Personal history of malignant neoplasm of breast; Z90.11 Acquired absence of right breast and nipple | CPT/HCPCS: 76641; 77063; 77067 ==

== ENCOUNTER → 2020-06-05 | Outpatient (CLI) | payer MEDICAID ==
[~2020-06-05] MED LIST changes: -OXYC-432 PO; +OXYC1TAB18 PO
== END | disposition home or self-care (01) ==
LOC: EDSTATUS 04-28 09:45 → RAD 12:22
PROVIDERS: ATTEND Physician Assistant Surgical
DX: M51.16 Intervertebral disc disorders with radiculopathy, lumbar region (principal); M47.26 Other spondylosis with radiculopathy, lumbar region; M48.07 Spinal stenosis, lumbosacral region
CPT/HCPCS: 72148

== ENCOUNTER → 2020-08-14 | Outpatient (CLI) | payer MEDICAID | END | disposition home or self-care (01) | LOC: CFH 11:12 | PROVIDERS: ATTEND Internal Medicine Hematology & Oncology | DX: C50.411 Malignant neoplasm of upper-outer quadrant of right female breast (principal); M81.0 Age-related osteoporosis without current pathological fracture; M85.89 Other specified disorders of bone density and structure, multiple sites | CPT/HCPCS: 77080 ==

== ENCOUNTER 2020-10-16 13:43 | Emergency (ER) | payer MEDICAID ==
[~2020-10-16] VITALS: Ht 170.2 cm; Wt 87.1 kg
--- NOTE | 2020-10-16 14:37 | NUR ---
GOLF COURSE ASSISTANT: PT AMBULATORY TO ROOM FROM LOBBY
--- NOTE | 2020-10-16 14:50 | NUR ---
FEVER FOR TWO DAYS (100), YESTERDAY DEVELOPED N/V, AND COUGH. vss pox 99%
[2020-10-16] MEDS ORDERED: SODIUM CHLORIDE FLUSH 10ML SYR IVF ONE (15:00)
[2020-10-16] MEDS ORDERED: ONDANSETRON 2MG/ML, 2ML IVPush ONE (15:00)
[2020-10-16] MEDS ORDERED: SODIUM CHLORIDE 0.9% 1,000ML IVBOLUS ONE (15:00)
[2020-10-16] MEDS ORDERED: ONDANSETRON 2MG/ML, 2ML ONE (15:09)
[2020-10-16 15:16] LABS: BASOPHILS % (AUTO) 1 % (0-1); EOSINOPHILS % (AUTO) 0 % (1-7); LYMPHOCYTES % (AUTO) 15 % (22-44); MEAN CORPUSCULAR HGB CONC 33.9 g/dL (32.4-35.8); MEAN PLATELET VOLUME 6.2 fL (7.4-10.4); MONOCYTES % (AUTO) 5 % (2-9); NEUTROPHILS % (AUTO) 79 % (42-75); PLATELET COUNT 417 x10^3/uL (130-400); RED BLOOD COUNT 4.73 x10^6/uL (3.82-5.3); RED CELL DISTRIBUTION WIDTH 16.1 % (9.6-15.2)
[2020-10-16 15:18] LABS: MD NO
--- NOTE | 2020-10-16 15:47 | NUR ---
with reasessment nausea improved to 1/10
[2020-10-16 15:49] VITALS: BP 109/79
[2020-10-16 15:58] LABS: MICROSCOPIC INDICATED
[2020-10-16 16:03] LABS: ALANINE AMINOTRANSFERASE 20 U/L (12-78); ALBUMIN 3.7 g/dL (3.4-5.0); ANION GAP 8 mmol/L (5-15); CALCIUM 9.2 mg/dL (8.5-10.1); CHLORIDE 103 mmol/L (98-107); CREATININE 0.72 mg/dL (0.55-1.02)
[2020-10-16 16:08] LABS: ALKALINE PHOSPHATASE 98 U/L (45-117); BILIRUBIN,TOTAL 0.5 mg/dL (0.2-1.0); TOTAL PROTEIN 7.8 g/dL (6.4-8.2)
[2020-10-16] MEDS ORDERED: METOCLOPRAMIDE 5 MG/ML, 2ML ONE (16:26)
[2020-10-16] MEDS ORDERED: METOCLOPRAMIDE 5 MG/ML, 2ML IVPush ONE (16:30)
--- NOTE | 2020-10-16 16:35 | NUR ---
NAUSEA REBOUNDED. PROVIDER MADE AWARE. TESTING RESULTS REVIEWED. MEDICATED PER EMAR THEN TO DC IF PO CHALLEGE SUCCESSFUL
--- NOTE | 2020-10-16 16:53 | NUR ---
nausea improved reviewed testing, presumed dx and coarse of illness. what to watch for. how to quaratine. teach back succesful
== END 2020-10-16 16:55 | disposition home or self-care (01) ==
LOC: ED 16:50
DX: A08.4 Viral intestinal infection, unspecified (principal); Z20.822 Contact with and (suspected) exposure to COVID-19; R50.9 Fever, unspecified; M79.10 Myalgia, unspecified site; R00.0 Tachycardia, unspecified
CPT/HCPCS: 36415; 71045; 80053; 81001; 83690; 84703; 85025; 87635; 96361; 96374; 96375; 99284; J2405; J2765; J7030

== ENCOUNTER 2020-10-19 16:39 | Emergency (ER) | payer MEDICAID ==
[~2020-10-19] VITALS: Ht 170.2 cm; Wt 87.0 kg
--- NOTE | 2020-10-19 17:12 | NUR ---
CC OF BODY ACHE, HUFFMAN, FEVER, CHILLS, AND NAUSEA, WAS COVID NEGATIVE 2 DAYS AGO WHEN LAST SEEN HERE BUT FEELING WORSE.
[2020-10-19] MEDS ORDERED: SODIUM CHLORIDE FLUSH 10ML SYR IVF ONE (18:00)
[2020-10-19] MEDS ORDERED: HYDROmorphone 2 MG/ML, 1ML IVPush PRN (18:00)
[2020-10-19] MEDS ORDERED: METOCLOPRAMIDE 5 MG/ML, 2ML IVPush ONE (18:00)
[2020-10-19] MEDS ORDERED: ONDANSETRON 2MG/ML, 2ML IVPush ONE (18:00)
[2020-10-19] MEDS ORDERED: SODIUM CHLORIDE 0.9% 1,000ML IVBOLUS ONE (18:00)
--- NOTE | 2020-10-19 18:00 | NUR ---
PT RESTING IN GURNEY, TEARFUL ABOUT NOT FEELING WELL
[2020-10-19 18:10] LABS: BASOPHILS % (AUTO) 1 % (0-1); EOSINOPHILS % (AUTO) 0 % (1-7); LYMPHOCYTES % (AUTO) 15 % (22-44); MEAN CORPUSCULAR HGB CONC 33.7 g/dL (32.4-35.8); MEAN PLATELET VOLUME 6.4 fL (7.4-10.4); MONOCYTES % (AUTO) 4 % (2-9); NEUTROPHILS % (AUTO) 80 % (42-75); PLATELET COUNT 509 x10^3/uL (130-400); RED BLOOD COUNT 4.83 x10^6/uL (3.82-5.3); RED CELL DISTRIBUTION WIDTH 16.1 % (9.6-15.2)
[2020-10-19 18:12] LABS: MD NO
[2020-10-19 18:21] LABS: ALBUMIN 3.9 g/dL (3.4-5.0); ANION GAP 6 mmol/L (5-15); CALCIUM 9.9 mg/dL (8.5-10.1); CHLORIDE 101 mmol/L (98-107)
[2020-10-19 18:26] LABS: ALANINE AMINOTRANSFERASE 35 U/L (12-78); ALKALINE PHOSPHATASE 99 U/L (45-117); BILIRUBIN,TOTAL 0.5 mg/dL (0.2-1.0); CREATININE 0.78 mg/dL (0.55-1.02); TOTAL PROTEIN 7.5 g/dL (6.4-8.2)
[2020-10-19] MEDS ORDERED: HYDROmorphone 2 MG/ML, 1ML ONE (18:33)
[2020-10-19] MEDS ORDERED: METOCLOPRAMIDE 5 MG/ML, 2ML ONE (18:33)
[2020-10-19] MEDS ORDERED: ONDANSETRON 2MG/ML, 2ML ONE (18:55)
--- NOTE | 2020-10-19 19:09 | NUR ---
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 ULTRASOUND USED TO PLACE IV.
--- NOTE | 2020-10-19 20:19 | NUR ---
PT UP TO RESTROOM WITH STAND BY ASSIST, STEADY GAIT BUT STATES SHE FEELS DIZZY
[2020-10-19 20:31] LABS: MICROSCOPIC AUTO
[2020-10-19] MEDS ORDERED: CEFTRIAXONE PMX 1GM/50ML 50 ML IVPB ONE (21:30)
[2020-10-19] MEDS ORDERED: CEFTRIAXONE PMX 1GM/50ML 50 ML ONE (21:43)
[2020-10-19 22:30] VITALS: BP 114/82
== END 2020-10-19 22:50 | disposition home or self-care (01) ==
LOC: ED 19:55
DX: N30.00 Acute cystitis without hematuria (principal); R50.9 Fever, unspecified; R11.2 Nausea with vomiting, unspecified; R19.7 Diarrhea, unspecified; M79.10 Myalgia, unspecified site; R51.9 Headache, unspecified
CPT/HCPCS: 36415; 80053; 81001; 83605; 83690; 85025; 87086; 96361; 96365; 96375; 99285; J0696; J1170; J2405; J2765; J7030

== ENCOUNTER 2020-12-22 15:54 | Emergency (ER) | payer MEDICAID ==
[~2020-12-22] VITALS: Ht 170.2 cm; Wt 90.0 kg
--- NOTE | 2020-12-22 17:40 | NUR ---
CHECKER DUMP GROUNDS: PT TO ROOM FROM LOBBY AT THIS TIME
--- NOTE | 2020-12-22 18:05 | NUR ---
PT AMBULATORY TO ROOM 16 W/ C/O LBP AFTER PT STATES SHE WAS TRYING TO GET OOB AND SHE TRIPPED AND SLIPPED ONTO HER BACK AND BACK FELL INTO DRAWER. PT HAD LOWER BACK SURGERY NOVEMBER 22 OR November. PT DENIES N/T/INCONTINENCE. PT ALSO HAS C/O R PINKY FINGER PAIN/NUMBNESS. PT RESTING ON GURNEY. REFUSED WARM BLANKET. MONITORS APPLIED. VSS.
[2020-12-22 18:09] VITALS: BP 137/92
--- NOTE | 2020-12-22 18:28 | NUR ---
ERP DR. FRIED AT BEDSIDE FOR EVAL.
[2020-12-22] MEDS ORDERED: ONDANSETRON ODT 4 MG ONE (18:42)
[2020-12-22] MEDS ORDERED: HYDROmorphone 1 MG/ML, 1ML INJ ONE (18:43)
[2020-12-22] MEDS ORDERED: ONDANSETRON ODT 4 MG PO ONE (19:00)
[2020-12-22] MEDS ORDERED: HYDROmorphone 1 MG/ML, 1ML INJ IM ONE (19:00)
== END 2020-12-22 19:29 | disposition home or self-care (01) ==
LOC: ED 17:57
DX: S39.012A Strain of muscle, fascia and tendon of lower back, initial encounter (principal); F17.200 Nicotine dependence, unspecified, uncomplicated; W18.30XA Fall on same level, unspecified, initial encounter; Y93.89 Activity, other specified; Y92.009 Unspecified place in unspecified non-institutional (private) residence as the place of occurrence of the external cause; Y99.8 Other external cause status
CPT/HCPCS: 72110; 96372; 99283; J1170; Q0162

== ENCOUNTER 2021-01-28 18:49 | Emergency (ER) | payer MEDICAID ==
[~2021-01-28] VITALS: Ht 170.2 cm; Wt 99.0 kg
[~2021-01-28 18:49] MED LIST changes: +MIRT-14 PO; -MIRT-34 PO
--- NOTE | 2021-01-28 19:10 | NUR ---
CC OF CHILLS, DIZZY, [place], COLD SWEATS, "I FEEL LIKE IM GOING TO CRAWL OUT OF MY SKIN".
--- NOTE | 2021-01-28 19:13 | NUR ---
ALSO STATES " I HAVE SO MUCH ACID".
[2021-01-28] MEDS ORDERED: SODIUM CHLORIDE 0.9% 1,000ML IVBOLUS ONE (20:00)
[2021-01-28] MEDS ORDERED: SODIUM CHLORIDE FLUSH 10ML SYR IVF ONE (20:00)
[2021-01-28] MEDS ORDERED: MORPHINE SULFATE 4 MG/ML, 1ML IVPush PRN (20:00)
[2021-01-28] MEDS ORDERED: PROCHLORPERAZINE 5 MG/ML, 2ML IVPush ONE (20:00)
[2021-01-28] MEDS ORDERED: MORPHINE SULFATE 4 MG/ML, 1ML ONE (20:21)
[2021-01-28] MEDS ORDERED: PROCHLORPERAZINE 5 MG/ML, 2ML ONE (20:21)
[2021-01-28 20:22] LABS: BASOPHILS % (AUTO) 1 % (0-1); EOSINOPHILS % (AUTO) 0 % (1-7); LYMPHOCYTES % (AUTO) 9 % (22-44); MEAN CORPUSCULAR HEMOGLOBIN 28.1 pg (27.0-34.8); MEAN CORPUSCULAR HGB CONC 33.2 g/dL (32.4-35.8); MEAN PLATELET VOLUME 6.5 fL (7.4-10.4); MONOCYTES % (AUTO) 1 % (2-9); NEUTROPHILS % (AUTO) 89 % (42-75); PLATELET COUNT 426 x10^3/uL (130-400); RED BLOOD COUNT 4.99 x10^6/uL (3.82-5.3); RED CELL DISTRIBUTION WIDTH 15.9 % (9.6-15.2)
[2021-01-28 20:31] LABS: ALANINE AMINOTRANSFERASE 23 U/L (12-78); ALBUMIN 4.1 g/dL (3.4-5.0); ANION GAP 6 mmol/L (5-15); CALCIUM 9.5 mg/dL (8.5-10.1); CHLORIDE 104 mmol/L (98-107); CREATININE 0.79 mg/dL (0.55-1.02)
[2021-01-28 20:35] LABS: ALKALINE PHOSPHATASE 113 U/L (45-117); BILIRUBIN,TOTAL 0.3 mg/dL (0.2-1.0); TOTAL PROTEIN 8.4 g/dL (6.4-8.2)
[2021-01-28 20:45] LABS: MD SCAN
--- NOTE | 2021-01-28 21:02 | NUR ---
PT NOW SLEEPING. AWAKENS EASILY TO VERBAL STIMULI. PT STATES PAIN IS STILL THERE, HOWEVER, FALLS ASLEEP MID CONVERSATION.
[2021-01-28 21:11] LABS: MICROSCOPIC INDICATED
--- NOTE | 2021-01-28 22:31 | NUR ---
Patient given discharge instructions and they have confirmed that they understand the instructions. Patient ambulatory with steady gait. NAD, all questions answered appropriately, denies additional needs at this time. No personal belongings left in room after discharge.
[2021-01-28 22:32] VITALS: BP 141/79
== END 2021-01-29 22:39 | disposition home or self-care (01) ==
LOC: ED 18:50
DX: R11.2 Nausea with vomiting, unspecified (principal); R19.7 Diarrhea, unspecified; R10.84 Generalized abdominal pain; M19.90 Unspecified osteoarthritis, unspecified site; F17.200 Nicotine dependence, unspecified, uncomplicated; Z90.49 Acquired absence of other specified parts of digestive tract; Z85.3 Personal history of malignant neoplasm of breast
CPT/HCPCS: 36415; 80053; 81001; 83690; 84703; 85025; 87086; 93005; 96361; 96374; 96375; 99284; J0780; J2270; J7030

== ENCOUNTER 2021-01-30 21:14 | Emergency (ER) | payer MEDICAID ==
[~2021-01-30] VITALS: Ht 170.2 cm; Wt 95.4 kg
[2021-01-30] MEDS ORDERED: MAALOX/HYOSCYAMINE/LIDOCAINE 45 ML BTL ONE ×2 (21:59→22:07)
[2021-01-30] MEDS ORDERED: KETOROLAC 30 MG/1 ML ONE ×2 (21:59→22:07)
[2021-01-30] MEDS ORDERED: MAALOX/HYOSCYAMINE/LIDOCAINE 45 ML BTL PO ONE (22:00)
[2021-01-30] MEDS ORDERED: KETOROLAC 30 MG/1 ML IM ONE (22:00)
[2021-01-30 22:04] LABS: BASOPHILS % (AUTO) 1 % (0-1); EOSINOPHILS % (AUTO) 0 % (1-7); LYMPHOCYTES % (AUTO) 26 % (22-44); MEAN CORPUSCULAR HEMOGLOBIN 28.1 pg (27.0-34.8); MEAN CORPUSCULAR HGB CONC 33.4 g/dL (32.4-35.8); MEAN PLATELET VOLUME 6.5 fL (7.4-10.4); MONOCYTES % (AUTO) 6 % (2-9); NEUTROPHILS % (AUTO) 67 % (42-75); PLATELET COUNT 402 x10^3/uL (130-400); RED BLOOD COUNT 4.67 x10^6/uL (3.82-5.3); RED CELL DISTRIBUTION WIDTH 16.3 % (9.6-15.2)
--- NOTE | 2021-01-30 22:08 | NUR ---
pt back from CT, placed back on monitors
[2021-01-30 22:10] LABS: ALANINE AMINOTRANSFERASE 18 U/L (12-78); ALBUMIN 3.7 g/dL (3.4-5.0); ANION GAP 9 mmol/L (5-15); CHLORIDE 107 mmol/L (98-107)
[2021-01-30 22:12] LABS: ALKALINE PHOSPHATASE 94 U/L (45-117); BILIRUBIN,TOTAL 0.3 mg/dL (0.2-1.0); TOTAL PROTEIN 7.2 g/dL (6.4-8.2)
--- NOTE | 2021-01-30 22:33 | NUR ---
updated patient, denies any needs
[2021-01-30 23:31] VITALS: BP 135/89
== END 2021-01-30 23:41 | disposition home or self-care (01) ==
LOC: ED 21:22
DX: R10.84 Generalized abdominal pain (principal); F41.1 Generalized anxiety disorder; R11.2 Nausea with vomiting, unspecified; R19.7 Diarrhea, unspecified; M19.90 Unspecified osteoarthritis, unspecified site; F17.200 Nicotine dependence, unspecified, uncomplicated; Z85.3 Personal history of malignant neoplasm of breast; Z90.710 Acquired absence of both cervix and uterus; Z90.89 Acquired absence of other organs
CPT/HCPCS: 36415; 74176; 80053; 83690; 85025; 96372; 99284; J1885